=== PATIENT | male | born 1990 ===

== ENCOUNTER 2017-04-15 16:40 | Emergency (ER) | payer BC, OTHER ==
[2017-04-15 16:40] VITALS: BMI 28.8
[2017-04-15 16:51] VITALS: BP 159/92; PULSE 95; RESP 16; TEMP 98.2; O2SAT 99
[2017-04-15] MEDS ORDERED: Ciprofloxacin 0.3% OPTH SOLN OD STA (17:10)
--- NOTE | 2017-04-15 17:13 | ED PDOC ---
Arrival/HPI - General Chief Complaint: Eye Problem Time Seen by Provider: 04/15/17 16:42 Historian: Patient - History of Present Illness Narrative History of Present Illness (Text): 04/15/17 17:12 Patient has had redness and irritation to the L eye since x 2 days, after wearing his contact lens overnight. (-) prior treatment, (-) discharge. Otherwise: (-) known trauma, (-) known foreign body, (-) visual changes, (-) eye pain, (-) recent viral syndrome, (-) sexually transmitted diseases, (-) fever blister (-) photophobia (-) foreign body sensation. PMD none Past Medical History - Provider Review Nursing Documentation Reviewed: Yes - Infectious Disease Hx of Infectious Diseases: None - Tetanus Immunization Tetanus Immunization: Unknown - Cardiac Hx Hyperlipemia: Yes - Psychiatric Hx Psychophysiologic Disorder: No Hx Depression: No Hx Emotional Abuse: No Hx Physical Abuse: No Hx Substance Use: No - Past Surgical History Past Surgical History: No Previous - Suicidal Assessment Feels Threatened In Home Enviroment: No Family/Social History - Physician Review Nursing Documentation Reviewed: Yes Family/Social History: No Known Family HX Smoking Status: Never Smoked Hx Alcohol Use: Yes Frequency of alcohol use: Socially Hx Substance Use: No Allergies/Home Meds Allergies/Adverse Reactions: Allergies No Known Allergies Allergy (Verified 04/15/17 16:46) Review of Systems - Review of Systems Constitutional: Normal. absent: Fatigue, Weight Change, Fevers Eyes: Normal, Other (R eye redness ). absent: Vision Changes, Photophobia, Eye Pain ENT: Normal. absent: Hearing Changes, Sore Throat, Rhinorrhea, Sinus Congestion Skin: Normal. absent: Rash, Pruritis, Skin Lesions Physical Exam - Physical Exam Narrative Physical Exam (Text): 04/15/17 17:13 GENERAL APPEARANCE: Patient is awake, alert, oriented x 3, in no acute distress. SKIN: Warm, dry. (-) Rash, (-) lesions. HEENT: (-) facial swelling or erythema, (-) vesicles, (-) preauricular adenopathy. VISUAL ACUITIES: Left eye.: 20/ 30; Right eye: 20/ 25. LIDS & LASHES: (-) crusting. PUPILS: Pupils equal and reactive. EOM's: Intact. LID EVERSION: (-) foreign body. CONJUNCTIVAE: (+) mild diffuse injection, (-) limbal flush, (-) discharge, (-) chemosis. CORNEA: Clear. ANTERIOR CHAMBER: Clear. FLUORESCEIN: (-) uptake. Vital Signs Temp Pulse Resp BP Pulse Ox 04/15/17 16:47 98.2 F 95 H 16 159/92 H 99 Medical Decision Making ED Course and Treatment: 04/15/17 17:14 26 yo M presents with redness and irritation to the L eye since x 2 days, after wearing his contact lens overnight. Patient medicated with cipro eye drop to the R eye. Advised of the likely dx of conjunctivitis. Advised to avoid touching his eye to prevent spread of infection to the other eye and to others. Advised to d/c contact lens use for now, to use his glasses and to f/u with his eye doctor for re-evaluation and to determine when he can reuse his contacts. Instructed to follow up with his eye doctor in 2 days without fail. Advised to take medication as prescribed. Return to the emergency room at any time for any new or worsening symptoms. Patient states he fully agrees with and understands discharge instructions. States that he agrees with the plan and disposition. Verbalized and repeated discharge instructions and plan. I have given the patient opportunity to ask any additional questions. - Medication Orders Current Medication Orders: Discontinued Medications Ciprofloxacin (Ciloxan 0.3% Ophth Soln) 1 drop OD STAT STA Stop: 04/15/17 17:11 Last Admin: 04/15/17 17:27 Dose: 1 drop - PA / NEGATIVE ASSEMBLER / Resident Statement MD/DO has reviewed & agrees with the documentation as recorded. Disposition/Present on Arrival - Present on Arrival Any Indicators Present on Arrival: No History of DVT/PE: No History of Uncontrolled Diabetes: No Urinary Catheter: No History of Decub. Ulcer: No History Surgical Site Infection Following: None - Disposition Have Diagnosis and Disposition been Completed?: Yes Diagnosis: Conjunctivitis Disposition: HOME/ ROUTINE Disposition Time: 17:10 Patient Plan: Discharge Condition: STABLE Discharge Instructions (ExitCare): Conjunctivitis (ED) Print Language: MONGOLIAN Additional Instructions: Thank you for letting us take care of you today. You were treated for conjunctivitis. The emergency medical care you received today was directed at your acute symptoms. If you were prescribed any medication, please fill it and take as directed. It may take several days for your symptoms to resolve, in the mean time DO NOT WEAR YOUR CONTACT LENS. Return to the Emergency Department if your symptoms worsen, do not improve, or if you have any other problems. Please contact your eye doctor in 2 days for re-evaluation and follow up. Bring any paperwork you were given at discharge with you along with any medications you are taking to your follow up visit. Our treatment cannot replace ongoing medical care by a primary care provider (PCP) outside of the emergency department. Thank you for allowing the [facility] team to be part of your care today. Prescriptions: Ciprofloxacin 0.3% [Ciloxan 0.3% Ophth SOLN] 1 drop OD QID #1 bottle Referrals: PCP,NO [Primary Care Provider] - Follow up with primary Forms: [employer] (Faroese)
== END 2017-04-15 17:32 | disposition home or self-care (01) ==
LOC: ED 16:40
DX: H10.9 Unspecified conjunctivitis (principal)